=== PATIENT | female | born 1940 | race Caucasian/White ===

== ENCOUNTER 2016-10-06 16:12 | Inpatient (IN) | payer MEDICARE, MEDICAID ==
[~2016-10-06] VITALS: Ht 154.9 cm; Wt 70.8 kg
[~2016-10-06 16:12] MED LIST: AZEL6DRO5 EACHEYE; AZEL6DRO5 OP; BACL-141 PO; CITA20TA11 PO; DICL75TA5 PO; DONE5TAB33 PO; FLUT16SP15 NS; GABA-531 PO; IBUP-1510 PO; IOHEXOL-300 100 ML BOTTLE ONE; LEVO50TA8 PO; LISI10TA5 PO; MAPAP PO; MELO-58 PO; MEMA1CAP PO; METF850T2 PO; OMEP20TA15 PO; PANT40TA4 PO; SODIUM CHLORIDE 0.9% 10ML VIAL ONE; TEMA15CA PO
[2016-10-06] MEDS ORDERED: ONDANSETRON HCL 4MG/2ML VIAL ONE (17:13)
[2016-10-06] MEDS ORDERED: MORPHINE SULFATE 4 MG/ML CPJ (NOT FOR IM USE) IV STA (17:17)
[2016-10-06] MEDS ORDERED: SODIUM CHLORIDE 0.9% 1,000 ML IV ONE (17:17)
[2016-10-06] MEDS ORDERED: ONDANSETRON HCL 4MG/2ML VIAL IV STA (17:17)
[2016-10-06 17:58] LABS: CLARITY URINE CLOUDY (CLEAR); COLOR URINE YELLOW (YELLOW); GLUCOSE URINE NEGATIVE (NEGATIVE); KETONES URINE 2+ (NEGATIVE); LEUKOCYTE ESTERASE URINE 1+ (NEGATIVE); NITRITE URINE NEGATIVE (NEGATIVE); OCCULT BLOOD URINE NEGATIVE (NEGATIVE); PROTEIN URINE TRACE (NEGATIVE); SPECIFIC GRAVITY URINE 1.029 (1.005-1.030); UROBILINOGEN URINE 0.2 E.U./dL (0.2-1.0)
[2016-10-06 18:03] LABS: HEMATOCRIT. 41.7 % (36.0-48.0); HEMOGLOBIN. 13.7 g/dL (12.0-16.0); MEAN CORPUSCULAR HEMOGLOBIN 27.7 pg (28.0-32.0); MEAN CORPUSCULAR VOLUME 84.3 fL (81.0-99.0); MEAN PLATELET VOLUME 9.7 fl (7.4-10.4); PLATELET 221 x1000/uL (130-400); RED BLOOD CELL COUNT 4.95 mill/uL (4.2-5.4); RED CELL DISTRIBUTION WIDTH 14.7 % (11.6-14.6)
[2016-10-06 18:04] LABS: CHLORIDE 108 mEq/L (98-107)
[2016-10-06 18:05] LABS: PROTHROMBIN TIME 10.4 sec
[2016-10-06 18:10] LABS: CARBON DIOXIDE 25 mEq/L (21-32)
[2016-10-06 18:17] LABS: TROPONIN I < 0.02 ng/mL (0.00-0.04)
[2016-10-06 18:25] LABS: PLATELET ESTIMATE NORMAL
[2016-10-06] MEDS ORDERED: METRONIDAZOLE 500 MG PREMIX 100 ML IV ONE (19:45)
[2016-10-06] MEDS ORDERED: CEFTRIAXONE 2 G PREMIX 50 ML IV ONE (19:45)
[2016-10-06] MEDS ORDERED: METRONIDAZOLE 500 MG PREMIX 100 ML IV SCH (20:30)
[2016-10-06 22:30] VITALS: BP 118/76
[2016-10-06] MEDS ORDERED: IPRATROPIUM/ALBUTEROL 0.5-3(2.5)MG/3ML NEB INH PRN (23:30)
[2016-10-06] MEDS ORDERED: ACETAMINOPHEN 650MG/20.3ML UDC GT PRN (23:30)
[2016-10-06] MEDS ORDERED: CLONIDINE 0.1MG TABLET PO PRN (23:30)
[2016-10-06] MEDS ORDERED: ACETAMINOPHEN 325MG TABLET PO PRN (23:30)
[2016-10-06] MEDS ORDERED: ACETAMINOPHEN 650MG SUPP PR PRN (23:30)
[2016-10-06] MEDS ORDERED: GUAIFENESIN 200MG/10ML SUGAR FREE UDC PO PRN (23:30)
[2016-10-06] MEDS ORDERED: DOCUSATE SODIUM 100MG CAPSULE PO PRN (23:30)
[2016-10-06] MEDS ORDERED: HYDROMORPHONE HCL/PF 2MG/ML CPJ IV PRN (23:30)
[2016-10-06] MEDS ORDERED: HYDROCODONE/ACETAMINOPHEN 5/325MG TABLET PO PRN (23:30)
[2016-10-06] MEDS ORDERED: DIPHENHYDRAMINE 50MG/ML VIAL IV PRN (23:30)
[2016-10-06] MEDS ORDERED: MAGNESIUM/ALUMINUM HYDROXIDE/SIMETHICONE 30ML UDC PO PRN (23:30)
[2016-10-06] MEDS ORDERED: NA PHOS,M-B/NA PHOS,DI-BA ENEMA 118ML PR PRN (23:30)
[2016-10-06] MEDS ORDERED: MORPHINE SULFATE 2 MG/ML CPJ (NOT FOR IM USE) IV PRN (23:45)
[2016-10-06] MEDS: ONDANSETRON HCL 4MG/2ML VIAL IV PRN (23:59)
[2016-10-07] VITALS: BP 143/74
[2016-10-07] MEDS: SODIUM CHLORIDE 0.9% 1,000 ML IV SCH ×2 (00:11→13:18)
[2016-10-07] MEDS ORDERED: MVI, ADULT NO.1 10 ML, FOLIC ACID 1 MG, THIAMINE HCL 100 MG in SODIUM CHLORIDE 0.9% 1,0... IV SCH ×4 (01:00)
[2016-10-07] MEDS ORDERED: LEVOFLOXACIN 500MG PREMIX 100 ML IV NR (02:00)
[2016-10-07] MEDS: SODIUM CHLORIDE 0.9% INJ 3ML FLUSH IVF SCH ×3 (06:32→21:25)
[2016-10-07] MEDS: METRONIDAZOLE 500 MG PREMIX 100 ML IV SCH ×3 (06:32→21:25)
[2016-10-07 07:01] LABS: BASOPHILS % 0.2 % (0.0-2.0); EOSINOPHILS % 0.4 % (0.0-5.0); HEMATOCRIT. 34.9 % (36.0-48.0); HEMOGLOBIN. 11.5 g/dL (12.0-16.0); LYMPHOCYTES % 8.5 % (20.0-50.0); MEAN CORPUSCULAR HEMOGLOBIN 27.8 pg (28.0-32.0); MEAN CORPUSCULAR VOLUME 84.9 fL (81.0-99.0); MEAN PLATELET VOLUME 9.6 fl (7.4-10.4); MONOCYTES % 5.1 % (2.0-8.0); NEUTROPHILS % 85.8 % (40.0-76.0); PLATELET 188 x1000/uL (130-400); RED BLOOD CELL COUNT 4.11 mill/uL (4.2-5.4); RED CELL DISTRIBUTION WIDTH 14.7 % (11.6-14.6)
[2016-10-07 07:40] LABS: CARBON DIOXIDE 24 mEq/L (21-32); CHLORIDE 111 mEq/L (98-107)
[2016-10-07 08:00] VITALS: BP 115/58
[2016-10-07 08:04] LABS: *AMPHETAMINES SCREEN URINE NEGATIVE (NEGATIVE); *BARBITURATES SCREEN URINE NEGATIVE (NEGATIVE); *BENZODIAZEPINES SCREEN URINE NEGATIVE (NEGATIVE); *COCAINE SCREEN URINE NEGATIVE (NEGATIVE); CANNABINOID URINE SCREEN NEGATIVE (NEGATIVE); METHADONE URINE SCREEN NEGATIVE (NEGATIVE); OPIATES URINE SCREEN NEGATIVE (NEGATIVE); PHENCYCLIDINE URINE SCREEN NEGATIVE (NEGATIVE)
[2016-10-07] MEDS: LEVOTHYROXINE SODIUM 50MCG TABLET PO SCH (08:58)
[2016-10-07] MEDS: DONEPEZIL HCL 5MG TABLET PO SCH (08:58)
[2016-10-07] MEDS: ONDANSETRON HCL 4MG/2ML VIAL IV PRN ×2 (08:58→18:41)
[2016-10-07] MEDS: LISINOPRIL 10MG TABLET PO SCH (08:58)
[2016-10-07] MEDS: GABAPENTIN 300MG CAPSULE PO SCH ×3 (08:58→16:27)
[2016-10-07] MEDS: PANTOPRAZOLE 40MG DR TABLET PO SCH (08:58)
[2016-10-07] MEDS: ENOXAPARIN 40MG/0.4ML SYR SUBCUT SCH (08:59)
[2016-10-07] MEDS ORDERED: METFORMIN HCL 850MG TABLET PO SCH (09:00)
[2016-10-07] MEDS: CITALOPRAM HYDROBROMIDE 20MG TABLET PO SCH (09:31)
[2016-10-07 12:00] VITALS: BP 109/55
[2016-10-07 16:00] VITALS: BP 125/78
[2016-10-07 20:00] VITALS: BP 123/68
[2016-10-07] MEDS ORDERED: METOCLOPRAMIDE HCL 10MG/2ML VIAL IV NR (21:00)
[2016-10-08] VITALS: BP 138/71
[2016-10-08] MEDS ORDERED: LEVOFLOXACIN 250MG PREMIX 50 ML IV SCH (02:00)
[2016-10-08 04:00] VITALS: BP 138/68
[2016-10-08] MEDS: SODIUM CHLORIDE 0.9% INJ 3ML FLUSH IVF SCH ×2 (05:42→13:04)
[2016-10-08] MEDS: METRONIDAZOLE 500 MG PREMIX 100 ML IV SCH ×2 (05:42→13:05)
[2016-10-08] MEDS: SODIUM CHLORIDE 0.9% 1,000 ML IV SCH (05:43)
[2016-10-08] MEDS: LEVOTHYROXINE SODIUM 50MCG TABLET PO SCH (06:30)
[2016-10-08 07:29] VITALS: BP 115/45
[2016-10-08] MEDS: ENOXAPARIN 40MG/0.4ML SYR SUBCUT SCH (11:23)
[2016-10-08] MEDS: ONDANSETRON HCL 4MG/2ML VIAL IV PRN ×2 (11:23→13:28)
[2016-10-08] MEDS: GABAPENTIN 300MG CAPSULE PO SCH ×2 (11:23→13:04)
[2016-10-08] MEDS: PANTOPRAZOLE 40MG DR TABLET PO SCH (11:23)
[2016-10-08] MEDS: LISINOPRIL 10MG TABLET PO SCH (11:24)
[2016-10-08] MEDS: DONEPEZIL HCL 5MG TABLET PO SCH (11:24)
[2016-10-08] MEDS: CITALOPRAM HYDROBROMIDE 20MG TABLET PO SCH (11:24)
[2016-10-08 11:50] VITALS: BP 120/57
[2016-10-08 14:46] VITALS: BP 120/57
[2016-10-08] MEDS ORDERED: METRONIDAZOLE 500MG TABLET PO SCH (22:00)
[2016-10-09] MEDS ORDERED: LEVOFLOXACIN 250MG TABLET PO SCH (11:00)
== END 2016-10-08 15:35 | disposition home or self-care (01) | DRG 872 ==
LOC: ER 16:13 → 8WST 20:09
PROVIDERS: ADMIT Family Medicine; ATTEND Family Medicine
DX: A41.9 Sepsis, unspecified organism (principal); K57.32 Diverticulitis of large intestine without perforation or abscess without bleeding; N39.0 Urinary tract infection, site not specified; K52.9 Noninfective gastroenteritis and colitis, unspecified; E03.9 Hypothyroidism, unspecified; E11.40 Type 2 diabetes mellitus with diabetic neuropathy, unspecified; I10 Essential (primary) hypertension; F03.90 Unspecified dementia, unspecified severity, without behavioral disturbance, psychotic disturbance, mood disturbance, and anxiety; F32.9 Major depressive disorder, single episode, unspecified; E86.0 Dehydration; K21.9 Gastro-esophageal reflux disease without esophagitis; Z88.5 Allergy status to narcotic agent; Z88.8 Allergy status to other drugs, medicaments and biological substances; Z79.84 Long term (current) use of oral hypoglycemic drugs; Z79.899 Other long term (current) drug therapy; Z82.49 Family history of ischemic heart disease and other diseases of the circulatory system
CPT/HCPCS: 36415; 71010; 74177; 80053; 80305; 81001; 83605; 83690; 84484; 85025; 85610; 93005; 96361; 96365; 96367; 96375; 99285; A4216; J0696; J1650; J1956; J2270; J2405; J2765; J3411; J3490; J7030; Q9967

== ENCOUNTER 2017-05-16 03:38 | Emergency (ER) | payer MEDICARE, MEDICAID ==
[~2017-05-16] VITALS: Ht 162.6 cm; Wt 63.0 kg
[~2017-05-16 03:38] MED LIST changes: -IBUP-1510 PO; +IBUP-2030 PO; -IOHEXOL-300 100 ML BOTTLE ONE; +MELO-106 PO; -MELO-58 PO; -SODIUM CHLORIDE 0.9% 10ML VIAL ONE
[2017-05-16 03:42] VITALS: BP 143/69
== END 2017-05-16 07:50 | disposition left against medical advice (07) ==
LOC: ER 03:38
DX: R05 Cough (principal); Z53.21 Procedure and treatment not carried out due to patient leaving prior to being seen by health care provider
CPT/HCPCS: 93005

== ENCOUNTER 2017-10-23 23:46 | Emergency (ER) | payer MEDICARE, MEDICAID ==
[~2017-10-23] VITALS: Ht 162.6 cm; Wt 73.0 kg
[~2017-10-23 23:46] MED LIST changes: -CITA20TA11 PO; +CITA20TA75 PO
[2017-10-24] MEDS ORDERED: LIDOCAINE HCL 1% 20ML VIAL (Pyxis) INJ MC ONE (00:45)
[2017-10-24] MEDS ORDERED: LIDOCAINE HCL/PF 1% 10 MG/ML 5ML VIAL IJ NR (01:00)
[2017-10-24] MEDS ORDERED: HYDROCODONE/ACETAMINOPHEN 5/325MG TABLET PO ONE (04:30)
[2017-10-24 05:33] VITALS: BP 143/80
== END 2017-10-24 05:49 | disposition home or self-care (01) ==
LOC: ER 23:46
DX: S52.502A Unspecified fracture of the lower end of left radius, initial encounter for closed fracture (principal); J45.909 Unspecified asthma, uncomplicated; I10 Essential (primary) hypertension; E11.9 Type 2 diabetes mellitus without complications; Z88.8 Allergy status to other drugs, medicaments and biological substances; Z88.5 Allergy status to narcotic agent; Z79.84 Long term (current) use of oral hypoglycemic drugs; W18.39XA Other fall on same level, initial encounter; Y93.89 Activity, other specified; Y92.89 Other specified places as the place of occurrence of the external cause; Y99.8 Other external cause status
CPT/HCPCS: 29105; 73100; 73130; 99284; J3490; A4565

== ENCOUNTER → 2018-11-15 | Outpatient (CLI) | payer MEDICARE, MEDICAID ==
[~2018-11-15] MED LIST changes: +METF-415 PO; -METF850T2 PO
== END | disposition home or self-care (01) ==
LOC: RAD 11:40
DX: M54.9 Dorsalgia, unspecified (principal); Z91.81 History of falling
CPT/HCPCS: 72100; 73090; 73110; 73610; 73630

== ENCOUNTER 2020-07-16 05:20 | Emergency (ER) | payer MEDICARE, MEDICAID ==
[~2020-07-16] VITALS: Ht 147.3 cm; Wt 73.0 kg
[~2020-07-16 05:20] MED LIST changes: -GABA-531 PO; +GABA-532 PO; +LISI10TA26 PO; -LISI10TA5 PO; -PANT40TA4 PO; +PANT40TA51 PO
[2020-07-16 05:35] VITALS: BP 123/51
== END 2020-07-16 06:58 | disposition home or self-care (01) ==
LOC: ER 05:20
DX: R42 Dizziness and giddiness (principal); E11.9 Type 2 diabetes mellitus without complications; I10 Essential (primary) hypertension; R51.9 Headache, unspecified; J45.909 Unspecified asthma, uncomplicated; Z88.8 Allergy status to other drugs, medicaments and biological substances; Z88.5 Allergy status to narcotic agent; Z79.899 Other long term (current) drug therapy
CPT/HCPCS: 93005; 99283

== ENCOUNTER 2021-07-24 14:22 | Emergency (ER) | payer MEDICARE, MEDICAID ==
[~2021-07-24] VITALS: Ht 152.4 cm; Wt 64.0 kg
[2021-07-24] MEDS ORDERED: TRAMADOL 50MG TABLET PO ONE (15:30)
[2021-07-24] MEDS ORDERED: ONDANSETRON 4MG ODT PO ONE (15:30)
[2021-07-24] MEDS ORDERED: ACET650T37 MT (19:49)
[2021-07-24 20:13] VITALS: BP 130/61
== END 2021-07-24 20:33 | disposition home or self-care (01) ==
LOC: ER 14:22
DX: S49.81XA Other specified injuries of right shoulder and upper arm, initial encounter (principal); S62.001A Unspecified fracture of navicular [scaphoid] bone of right wrist, initial encounter for closed fracture; S59.801A Other specified injuries of right elbow, initial encounter; S89.81XA Other specified injuries of right lower leg, initial encounter; I10 Essential (primary) hypertension; E11.9 Type 2 diabetes mellitus without complications; W17.2XXA Fall into hole, initial encounter; Y93.89 Activity, other specified; Y92.89 Other specified places as the place of occurrence of the external cause; Y99.9 Unspecified external cause status; Z88.6 Allergy status to analgesic agent; Z88.8 Allergy status to other drugs, medicaments and biological substances
CPT/HCPCS: 29125; 72100; 72170; 73030; 73080; 73090; 73110; 73130; 73562; 73590; 73630; 99284; Q0162

== ENCOUNTER 2022-01-08 07:02 | Inpatient (IN) | payer MEDICARE, MEDICAID ==
[~2022-01-08] VITALS: Ht 152.4 cm; Wt 67.6 kg
[~2022-01-08 07:02] MED LIST changes: +ACET-3163 MT
[2022-01-08 07:34] LABS: BASOPHILS % 1.1 % (0.0-2.0); EOSINOPHILS % 1.1 % (0.0-5.0); HEMATOCRIT. 39.4 % (42.0-52.0); LYMPHOCYTES % 24.1 % (20.0-50.0); MONOCYTES % 8.6 % (2.0-8.0); NEUTROPHILS % 65.1 % (40.0-76.0); PLATELET 233 x1000/uL (130-400)
[2022-01-08 07:42] LABS: CHLORIDE 109 mEq/L (98-107)
[2022-01-08 07:52] LABS: ETHANOL BLOOD < 10 mg/dL
[2022-01-08 09:45] LABS: CLARITY URINE CLEAR (CLEAR); COLOR URINE YELLOW (YELLOW); KETONES URINE NEGATIVE (NEGATIVE); LEUKOCYTE ESTERASE URINE NEGATIVE (NEGATIVE); NITRITE URINE NEGATIVE (NEGATIVE); OCCULT BLOOD URINE NEGATIVE (NEGATIVE); PH URINE 7.5 (4.5-8.0); PROTEIN URINE NEGATIVE (NEGATIVE); SPECIFIC GRAVITY URINE 1.008 (1.005-1.030); UROBILINOGEN URINE 0.2 E.U./dL (0.2-1.0)
[2022-01-08 09:56] LABS: *AMPHETAMINES SCREEN URINE NEGATIVE (NEGATIVE); *BARBITURATES SCREEN URINE NEGATIVE (NEGATIVE); *BENZODIAZEPINES SCREEN URINE NEGATIVE (NEGATIVE); *COCAINE SCREEN URINE NEGATIVE (NEGATIVE); CANNABINOID URINE SCREEN NEGATIVE (NEGATIVE); METHADONE URINE SCREEN NEGATIVE (NEGATIVE); OPIATES URINE SCREEN NEGATIVE (NEGATIVE); PHENCYCLIDINE URINE SCREEN NEGATIVE (NEGATIVE)
[2022-01-08] MEDS ORDERED: LEVOTHYROXINE SODIUM 25MCG TABLET PO SCH (11:15)
[2022-01-08] MEDS ORDERED: ACETAMINOPHEN 325MG TABLET PO ONE (11:15)
[2022-01-08] MEDS ORDERED: GUAIFENESIN 200MG/10ML SUGAR FREE UDC PO PRN (13:15)
[2022-01-08] MEDS ORDERED: MAGNESIUM/ALUMINUM HYDROXIDE/SIMETHICONE 30ML UDC PO PRN (13:15)
[2022-01-08] MEDS ORDERED: CLONIDINE 0.1MG TABLET PO PRN (13:15)
[2022-01-08] MEDS ORDERED: TRAMADOL 50MG TABLET PO PRN (13:15)
[2022-01-08] MEDS ORDERED: DOCUSATE SODIUM 100MG CAPSULE PO PRN (13:15)
[2022-01-08] MEDS ORDERED: ACETAMINOPHEN 325MG TABLET PO PRN (13:15)
[2022-01-08] MEDS: LISINOPRIL 10MG TABLET PO SCH (14:00)
[2022-01-08] MEDS: CITALOPRAM HYDROBROMIDE 10MG TABLET PO SCH (14:40)
[2022-01-08] MEDS: MULTIVITAMINS,THER W-MINERALS TABLET PO SCH (14:40)
[2022-01-08] MEDS: ONDANSETRON HCL 4MG/2ML INJ IV PRN (14:40)
[2022-01-08] MEDS: ENOXAPARIN 40MG/0.4ML SYR SUBCUT SCH (14:44)
[2022-01-08 16:43] VITALS: BP 110/60
[2022-01-08] MEDS ORDERED: TEMAZEPAM 15MG CAPSULE PO PRN (17:00)
[2022-01-08] MEDS ORDERED: IBUPROFEN 800MG TABLET PO PRN (17:00)
[2022-01-08 17:23] VITALS: BP 135/62
[2022-01-08] MEDS: GABAPENTIN 300MG CAPSULE PO SCH (17:46)
[2022-01-08] MEDS: METFORMIN HCL 850MG TABLET PO SCH (17:47)
[2022-01-08] MEDS ORDERED: DEXTROSE 50% WATER 50ML SYRINGE IV PRN (19:00)
[2022-01-08 20:00] VITALS: BP 105/39
[2022-01-08] MEDS: MEMANTINE HCL 5MG TABLET PO SCH ×2 (20:27→20:38)
[2022-01-08] MEDS: BLOOD SUGAR DIAGNOSTIC STRIP TEST SCH (20:39)
[2022-01-08] MEDS: INSULIN LISPRO 100 UNITS/ML SUBCUT SCH (20:39)
[2022-01-09] VITALS: BP 105/51
[2022-01-09 04:00] VITALS: BP 107/53
[2022-01-09] MEDS: BLOOD SUGAR DIAGNOSTIC STRIP TEST SCH ×3 (07:03→17:49)
[2022-01-09 07:27] LABS: BASOPHILS % 1.1 % (0.0-2.0); EOSINOPHILS % 1.5 % (0.0-5.0); HEMATOCRIT. 36.9 % (36.0-48.0); HEMOGLOBIN. 11.9 g/dL (12.0-16.0); LYMPHOCYTES % 29.2 % (20.0-50.0); MEAN CORPUSCULAR HEMOGLOBIN 26.7 pg (28.0-32.0); MEAN PLATELET VOLUME 9.6 fl (7.4-10.4); MONOCYTES % 7.2 % (2.0-8.0); PLATELET 217 x1000/uL (130-400); RED BLOOD CELL COUNT 4.44 mill/uL (4.2-5.4); RED CELL DISTRIBUTION WIDTH 16.1 % (11.6-14.6)
[2022-01-09 07:29] LABS: CHLORIDE 107 mEq/L (98-107)
[2022-01-09] MEDS ORDERED: LEVOTHYROXINE SODIUM 75MCG TABLET PO SCH (07:40)
[2022-01-09 07:45] LABS: HDL CHOLESTEROL 50 mg/dL (40-59); LDL CHOLESTEROL 130 mg/dL (5-100)
[2022-01-09 08:00] VITALS: BP 100/45
[2022-01-09] MEDS: INSULIN LISPRO 100 UNITS/ML SUBCUT SCH ×3 (08:00→17:49)
[2022-01-09] MEDS: CITALOPRAM HYDROBROMIDE 10MG TABLET PO SCH (08:40)
[2022-01-09] MEDS: MEMANTINE HCL 5MG TABLET PO SCH (08:40)
[2022-01-09] MEDS: MULTIVITAMINS,THER W-MINERALS TABLET PO SCH (08:40)
[2022-01-09] MEDS: METFORMIN HCL 850MG TABLET PO SCH ×2 (08:40→19:11)
[2022-01-09] MEDS: GABAPENTIN 300MG CAPSULE PO SCH ×3 (08:40→17:00)
[2022-01-09] MEDS: ENOXAPARIN 40MG/0.4ML SYR SUBCUT SCH (08:46)
[2022-01-09] MEDS: LISINOPRIL 10MG TABLET PO SCH (09:00)
[2022-01-09] MEDS ORDERED: AMLODIPINE 10MG TABLET PO SCH (09:00)
[2022-01-09] MEDS ORDERED: DONEPEZIL HCL 5MG TABLET PO SCH (09:00)
[2022-01-09] MEDS ORDERED: PANTOPRAZOLE 40MG DR TABLET PO SCH (09:00)
[2022-01-09 12:00] VITALS: BP 109/65
[2022-01-09 12:10] VITALS: BP 109/65
[2022-01-09] MEDS ORDERED: LACTULOSE 20G/30ML UDC PO SCH (12:45)
[2022-01-09] MEDS ORDERED: NA PHOS,M-B/NA PHOS,DI-BA ENEMA 118ML PR PRN (12:45)
[2022-01-09] MEDS: ONDANSETRON HCL 4MG/2ML INJ IV PRN (15:39)
[2022-01-09 16:00] VITALS: BP 123/56
[2022-01-09] MEDS ORDERED: ATORVASTATIN CALCIUM 20MG TABLET PO SCH (21:00)
== END 2022-01-09 20:45 | disposition home health service (06) | DRG 645 ==
LOC: ER 07:02 → EDBEDREQ 13:06 → EDBEDREQTM 13:06 → ENRESERV 13:15 → 7WST 16:10 → EDSEX 16:10
PROVIDERS: ADMIT Hospitalist; ATTEND Hospitalist
DX: E03.9 Hypothyroidism, unspecified (principal); E11.9 Type 2 diabetes mellitus without complications; I10 Essential (primary) hypertension; F03.90 Unspecified dementia, unspecified severity, without behavioral disturbance, psychotic disturbance, mood disturbance, and anxiety; D64.9 Anemia, unspecified; E78.5 Hyperlipidemia, unspecified; R94.6 Abnormal results of thyroid function studies; Z79.84 Long term (current) use of oral hypoglycemic drugs; Z88.8 Allergy status to other drugs, medicaments and biological substances; Z79.899 Other long term (current) drug therapy; R53.1 Weakness
CPT/HCPCS: 36415; 71045; 80053; 80061; 80305; 80320; 81003; 82962; 83036; 83880; 84439; 84443; 84484; 85025; 93005; 93970; 97162; 99285; J1650; J2405; G0480

== ENCOUNTER 2024-05-05 04:33 | Emergency (ER) | payer MEDICARE, MEDICAID ==
[~2024-05-05] VITALS: Ht 152.4 cm; Wt 77.0 kg
[~2024-05-05 04:33] MED LIST changes: -AZEL6DRO5 OP; +CIPR500T5 MT; -DICL75TA5 PO; +GABA-1180 PO; -GABA-532 PO; -MAPAP PO; -MELO-106 PO; +METR-167 MT; -OMEP20TA15 PO; +SENN1TAB35 PO; -TEMA15CA PO
[2024-05-05 04:39] VITALS: O2SAT 98
[2024-05-05] MEDS: ONDANSETRON HCL 4MG/2ML INJ IV STA (05:45)
[2024-05-05] MEDS: MORPHINE SULFATE 4 MG/ML INJ (FOR IV/IM USE) IV STA (05:45)
[2024-05-05 05:59] LABS: BASOPHILS % 0.3 % (0.0-2.0); EOSINOPHILS % 0.6 % (0.0-5.0); HEMATOCRIT. 40.6 % (36.0-48.0); HEMOGLOBIN. 13.3 g/dL (12.0-16.0); LYMPHOCYTES % 9.6 % (20.0-50.0); MEAN CORPUSCULAR HEMOGLOBIN 27.8 pg (28.0-32.0); MEAN CORPUSCULAR HGB CONC 32.9 g/dL (31.0-37.0); MEAN CORPUSCULAR VOLUME 84.8 fL (81.0-99.0); MEAN PLATELET VOLUME 8.7 fl (7.4-10.4); NEUTROPHILS % 83.5 % (40.0-76.0); PLATELET 236 x1000/uL (130-400); RED BLOOD CELL COUNT 4.79 mill/uL (4.2-5.4); RED CELL DISTRIBUTION WIDTH 15.6 % (11.6-14.6); WHITE BLOOD COUNT 12.5 x1000/uL (4.5-11.0)
[2024-05-05 06:06] LABS: CHLORIDE 109 mEq/L (98-107); POTASSIUM 3.5 mEq/L (3.5-5.1); SODIUM 142 mEq/L (136-145)
[2024-05-05 06:07] LABS: CARBON DIOXIDE 23 mEq/L (21-32)
[2024-05-05 06:08] LABS: CALCIUM 9.4 mg/dL (8.7-10.4)
[2024-05-05 06:12] LABS: CREATININE 0.7 mg/dL (0.6-1.0); GLUCOSE 137 mg/dL (70-105); UREA NITROGEN BLOOD 14 mg/dL (9-23)
[2024-05-05 06:14] LABS: ALANINE AMINOTRANSFERASE 16 IU/L (10-49); ALBUMIN 4.5 g/dL (3.2-4.8); ASPARTATE AMINOTRANSFERASE 22 IU/L (<34)
[2024-05-05 06:15] LABS: BILIRUBIN DIRECT 0.1 mg/dL (<=3.0); BILIRUBIN TOTAL 0.4 mg/dL (0.1-1.0); CLARITY URINE CLEAR (CLEAR); COLOR URINE YELLOW (YELLOW); INR 0.9; PROTEIN TOTAL 7.2 g/dL (6.0-8.3); PROTHROMBIN TIME 10.4 sec (9.6-11.0)
[2024-05-05 06:16] LABS: GLUCOSE URINE NEGATIVE (NEGATIVE); KETONES URINE NEGATIVE (NEGATIVE); LEUKOCYTE ESTERASE URINE NEGATIVE (NEGATIVE); NITRITE URINE NEGATIVE (NEGATIVE); OCCULT BLOOD URINE NEGATIVE (NEGATIVE); PH URINE 7.5 (4.5-8.0); PROTEIN URINE NEGATIVE (NEGATIVE); SPECIFIC GRAVITY URINE 1.007 (1.005-1.030); UROBILINOGEN URINE 1 E.U./dL (0.2-1.0)
[2024-05-05 06:31] LABS: TROPONIN I HIGH SENSITIVITY < 4 ng/L (3.0-34)
[2024-05-05] MEDS: METOCLOPRAMIDE HCL 10MG/2ML VIAL IV ONE (07:52)
[2024-05-05] MEDS ORDERED: IOHEXOL-300 100 ML BOTTLE ONE (09:43)
[2024-05-05] MEDS ORDERED: ACET-2708 MT (10:52)
[2024-05-05 11:29] VITALS: BP 146/74; PULSE 72; RESP 14; TEMP 36.50292; O2SAT 98
[2024-05-05] MEDS ORDERED: NA P133E4 RC (11:31)
[2024-05-05] MEDS ORDERED: MOM MT (11:31)
== END 2024-05-05 12:27 | disposition home or self-care (01) ==
LOC: ER 04:33
DX: K59.00 Constipation, unspecified (principal); E11.9 Type 2 diabetes mellitus without complications; I10 Essential (primary) hypertension; F19.90 Other psychoactive substance use, unspecified, uncomplicated; Z79.899 Other long term (current) drug therapy; Z88.8 Allergy status to other drugs, medicaments and biological substances; Z88.5 Allergy status to narcotic agent
CPT/HCPCS: 99285; 74177; 96374; 96375; 80076; 80048; 81003; 83690; 85025; 85610; 84484; 36415; 93005; Q9967; J2765; J2405; J2270

== ENCOUNTER 2025-02-11 18:59 | Emergency (ER) | payer OTHER, MEDICARE, MEDICAID ==
[~2025-02-11] VITALS: Ht 160 cm; Wt 68.0 kg
[~2025-02-11 18:59] MED LIST changes: +ACET-2708 MT; -CIPR500T5 MT; -IBUP-2030 PO; +MECL-299 PO; -METR-167 MT; +MOM MT; +NA P133E4 RC
[2025-02-11 19:01] VITALS: TEMP 37; O2SAT 98
[2025-02-11] MEDS: LIDOCAINE 5% PATCH TOP STA (20:22)
[2025-02-11 20:23] VITALS: BP 122/51; PULSE 81; RESP 14
[2025-02-11] MEDS: KETOROLAC 15MG/ML VIAL IM ONE (20:23)
== END 2025-02-11 22:01 | disposition left against medical advice (07) ==
LOC: ER 18:59
DX: M54.2 Cervicalgia (principal); V89.2XXA Person injured in unspecified motor-vehicle accident, traffic, initial encounter; Y93.89 Activity, other specified; Y92.89 Other specified places as the place of occurrence of the external cause; Y99.8 Other external cause status
CPT/HCPCS: 99281; J1885; 96372

== ENCOUNTER 2025-04-28 14:51 | Inpatient (IN) | payer MEDICARE, MEDICAID ==
[~2025-04-28] VITALS: Ht 152.4 cm; Wt 69.9 kg
[2025-04-28 14:54] VITALS: O2SAT 96
[2025-04-28 15:48] LABS: BASOPHILS % 1.0 % (0.0-2.0); EOSINOPHILS % 1.4 % (0.0-5.0); HEMATOCRIT. 35.3 % (36.0-48.0); HEMOGLOBIN. 11.7 g/dL (12.0-16.0); LYMPHOCYTES % 23.2 % (20.0-50.0); MEAN PLATELET VOLUME 8.8 fl (7.4-10.4); MONOCYTES % 8.7 % (2.0-8.0); NEUTROPHILS % 65.7 % (40.0-76.0); PLATELET 232 x1000/uL (130-400); RED BLOOD CELL COUNT 4.39 mill/uL (4.2-5.4); RED CELL DISTRIBUTION WIDTH 16.6 % (11.6-14.6)
[2025-04-28 16:01] LABS: CREATININE 0.9 mg/dL (0.6-1.0)
[2025-04-28 16:02] LABS: TROPONIN I HIGH SENSITIVITY 4 ng/L (3.0-34); UREA NITROGEN BLOOD 14.0 mg/dL (9-23)
[2025-04-28] MEDS: SODIUM CHLORIDE 0.9% 1,000 ML IV ONE (18:50)
[2025-04-28 20:04] LABS: CLARITY URINE CLEAR (CLEAR); COLOR URINE YELLOW (YELLOW); GLUCOSE URINE NEGATIVE (NEGATIVE); KETONES URINE NEGATIVE (NEGATIVE); LEUKOCYTE ESTERASE URINE TRACE (NEGATIVE); NITRITE URINE NEGATIVE (NEGATIVE); OCCULT BLOOD URINE NEGATIVE (NEGATIVE); PH URINE 6.5 (4.5-8.0); PROTEIN URINE NEGATIVE (NEGATIVE); SPECIFIC GRAVITY URINE 1.010 (1.005-1.030); UROBILINOGEN URINE 0.2 E.U./dL (0.2-1.0)
[2025-04-28 20:25] LABS: SQUAMOUS EPITHELIAL CELL URINE 2+ /lpf (RARE/1+)
[2025-04-28 20:26] LABS: RBC URINE 0-2 /hpf (0-2)
[2025-04-28 20:27] LABS: BACTERIA URINE 2+
[2025-04-28 20:38] LABS: BASOPHILS % 0.9 % (0.0-2.0); EOSINOPHILS % 1.2 % (0.0-5.0); HEMATOCRIT. 34.7 % (36.0-48.0); HEMOGLOBIN. 11.4 g/dL (12.0-16.0); LYMPHOCYTES % 27.1 % (20.0-50.0); MEAN PLATELET VOLUME 8.6 fl (7.4-10.4); MONOCYTES % 7.9 % (2.0-8.0); NEUTROPHILS % 62.9 % (40.0-76.0); PLATELET 225 x1000/uL (130-400); RED BLOOD CELL COUNT 4.22 mill/uL (4.2-5.4); RED CELL DISTRIBUTION WIDTH 16.4 % (11.6-14.6)
[2025-04-28 20:51] LABS: CREATININE 0.6 mg/dL (0.6-1.0); UREA NITROGEN BLOOD 11 mg/dL (9-23)
[2025-04-28 20:52] LABS: PROTEIN TOTAL 6.7 g/dL (6.0-8.3)
[2025-04-28 20:53] LABS: ASPARTATE AMINOTRANSFERASE 18 IU/L (<34); BILIRUBIN DIRECT < 0.1 mg/dL (<=3.0); BILIRUBIN TOTAL 0.4 mg/dL (0.1-1.0); TROPONIN I HIGH SENSITIVITY 4 ng/L (3.0-34)
[2025-04-28 22:01] VITALS: BP 125/53; PULSE 69; RESP 18; TEMP 36.6404
[2025-04-29] MEDS ORDERED: ONDANSETRON HCL 4MG/2ML INJ IV PRN
[2025-04-29] MEDS ORDERED: DEXTROSE 50% WATER 50ML SYRINGE IV PRN
[2025-04-29] MEDS ORDERED: DIPHENHYDRAMINE 50MG/ML VIAL IV PRN
[2025-04-29] MEDS ORDERED: CLONIDINE 0.1MG TABLET PO PRN
[2025-04-29] MEDS ORDERED: ACETAMINOPHEN 325MG TABLET PO PRN
[2025-04-29] MEDS ORDERED: ZOLPIDEM TARTRATE 5MG TABLET PO PRN
[2025-04-29] MEDS ORDERED: LORAZEPAM 0.5MG TABLET PO PRN
[2025-04-29] MEDS ORDERED: MAGNESIUM/ALUMINUM HYDROXIDE/SIMETHICONE 30ML UDC PO PRN (01:15)
[2025-04-29] MEDS: MAGNESIUM/ALUMINUM HYDROXIDE/SIMETHICONE 30ML UDC PO PRN (01:21)
[2025-04-29] MEDS: INSULIN LISPRO 100 UNITS/ML SUBCUT SCH (05:34)
[2025-04-29] MEDS: BLOOD SUGAR DIAGNOSTIC STRIP TEST SCH (05:34)
[2025-04-29] MEDS: PANTOPRAZOLE 40MG DR TABLET PO SCH (06:08)
[2025-04-29] MEDS: LEVOTHYROXINE SODIUM 50MCG TABLET PO SCH (06:09)
[2025-04-29] MEDS: SODIUM CHLORIDE 0.9% 3ML FLUSH IVF SCH (06:09)
[2025-04-29 08:00] VITALS: BP 109/50; PULSE 77; RESP 18; TEMP 38.3; O2SAT 97
[2025-04-29] MEDS: LISINOPRIL 10MG TABLET PO SCH (09:00)
[2025-04-29] MEDS: ACETAMINOPHEN 325MG TABLET PO PRN (09:30)
[2025-04-29] MEDS: ASPIRIN 81MG EC TABLET PO SCH (09:30)
[2025-04-29 12:00] VITALS: BP 112/52; PULSE 66; RESP 17; TEMP 36.5; O2SAT 95
[2025-04-29 16:00] VITALS: BP 112/52; PULSE 66; RESP 18; TEMP 36.1; O2SAT 96
[2025-04-29 20:00] VITALS: BP 122/46; PULSE 70; RESP 18; TEMP 36.8; O2SAT 97
[2025-04-29] MEDS: ATORVASTATIN CALCIUM 40MG TABLET PO SCH (21:00)
[2025-04-30] VITALS: BP 140/62; PULSE 74; RESP 18; TEMP 36.4; O2SAT 98
[2025-04-30 04:00] VITALS: BP 117/53; PULSE 69; RESP 18; TEMP 36.6; O2SAT 97
[2025-04-30 12:00] VITALS: BP 113/57; PULSE 67; RESP 18; TEMP 36.3; O2SAT 96
[2025-04-30 16:00] VITALS: BP 93/45; PULSE 63; RESP 18; TEMP 36.4; O2SAT 96
== END 2025-04-30 18:40 | disposition home health service (06) | DRG 554 ==
LOC: ER 14:51 → EDBEDREQ 18:15 → EDBEDREQTM 21:12 → ENRESERV 21:33 → 7EST 22:08
PROVIDERS: ADMIT Internal Medicine; ATTEND Internal Medicine
DX: M17.11 Unilateral primary osteoarthritis, right knee (principal); E03.9 Hypothyroidism, unspecified; E11.9 Type 2 diabetes mellitus without complications; I10 Essential (primary) hypertension; K29.70 Gastritis, unspecified, without bleeding; R53.1 Weakness; F41.1 Generalized anxiety disorder; E78.5 Hyperlipidemia, unspecified; I25.10 Atherosclerotic heart disease of native coronary artery without angina pectoris; Z88.5 Allergy status to narcotic agent; Z79.899 Other long term (current) drug therapy
CPT/HCPCS: 36415; 71045; 73560; 80048; 80076; 81003; 82962; 84443; 84484; 85025; 93005; 97161; 99285; J7030